=== PATIENT | male | born 1985 | race African-American/Black ===

== ENCOUNTER 2021-11-27 22:13 | Emergency (ER) | payer SELFPAY ==
[~2021-11-27] VITALS: Ht 195.6 cm; Wt 99.8 kg
--- NOTE | 2021-11-27 22:35 | NUR ---
BIBS C/O R HAND 2ND DIGIT LACERATION. TETANUS NOT UP TO DATE. ALERT AND ORIENTED X4 BREATHING EVEN AND UNLABORED.
[2021-11-27] MEDS ORDERED: TDAP [DIPH/PERTUSSIS/TET] 0.5 ML VIAL IM ONE ×2 (23:30→23:52)
[2021-11-27] MEDS ORDERED: SODIUM BICARBONATE 5 ML VIAL MC ONE (23:30)
[2021-11-27] MEDS ORDERED: LIDOCAINE 1%-EPI 1:100,000 20 ML VIAL TP ONE (23:30)
[2021-11-27] MEDS ORDERED: LIDOCAINE 1%-EPI 1:100,000 20 ML VIAL ONE ×2 (23:41→23:52)
[2021-11-27] MEDS ORDERED: SODIUM BICARBONATE 5 ML VIAL ONE ×2 (23:41→23:52)
--- NOTE | 2021-11-27 23:48 | NUR ---
AT BED SIDE FOR LAC CARE
--- NOTE | 2021-11-28 00:06 | NUR ---
Patient discharged to home in stable condition. Written and verbal after care instructions given. Patient verbalizes understanding of instruction.
[2021-11-28 00:12] VITALS: BP 113/60
== END 2021-11-28 00:12 | disposition home or self-care (01) ==
LOC: ER 22:13
DX: S61.210A Laceration without foreign body of right index finger without damage to nail, initial encounter (principal); W22.8XXA Striking against or struck by other objects, initial encounter; Y93.89 Activity, other specified; Y92.89 Other specified places as the place of occurrence of the external cause; Y99.8 Other external cause status
CPT/HCPCS: 12002; 73140; 99283; J3490 ×2; 90715

== ENCOUNTER 2021-11-29 11:49 | Emergency (ER) | payer SELFPAY ==
[~2021-11-29] VITALS: Ht 195.6 cm; Wt 98.0 kg
[2021-11-29 12:04] VITALS: BP 131/83
== END 2021-11-29 14:34 | disposition home or self-care (01) ==
LOC: ER 11:56
DX: S61.210D Laceration without foreign body of right index finger without damage to nail, subsequent encounter (principal); X58.XXXD Exposure to other specified factors, subsequent encounter

== ENCOUNTER 2021-12-07 13:02 | Emergency (ER) | payer SELFPAY ==
[~2021-12-07] VITALS: Ht 167.6 cm; Wt 98.0 kg
[2021-12-07 13:33] VITALS: BP 117/77
--- NOTE | 2021-12-07 13:33 | NUR ---
SUTURE REMOVAL,RIGHT INDEX LACERATION REPAIRED 11/27/2021
--- NOTE | 2021-12-07 14:28 | NUR ---
Patient discharged to home in stable condition. Written and verbal after care instructions given. Patient verbalizes understanding of instruction.
== END 2021-12-07 14:29 | disposition home or self-care (01) ==
LOC: ER 14:00
DX: S61.210D Laceration without foreign body of right index finger without damage to nail, subsequent encounter (principal); W26.8XXD Contact with other sharp object(s), not elsewhere classified, subsequent encounter